=== PATIENT | female | born 1965 | race Caucasian/White ===

== ENCOUNTER 2021-09-07 19:24 | Emergency (ER) | payer BC ==
[~2021-09-07 19:24] MED LIST: ACHD5005 PO; IBP600T1 PO
[2021-09-07] MEDS ORDERED: CEPHALEXIN 250 MG (KEFLEX) CAP PO STA (20:22)
[2021-09-07] MEDS ORDERED: CEPH500T PO (20:26)
--- NOTE | 2021-09-07 20:26 | ED Lower Extremity ---
General Chief Complaint: Laceration Stated Complaint: STEPPED ON A MASSIMO NAIL, L FOOT PUNCTURE WOUND Source: patient Exam Limitations: no limitations History of Present Illness Date Seen by Provider: Sep 07, 2021 Time Seen by Provider: 20:23 Initial Comments Patient is a 56-year-old female who presents ED with a puncture wound to her l eft plantar foot. Few hours ago she was cleaning out breaking down a shed. She stepped on a massimo nail through her shoe. She felt immediate pain was able to pull her foot off. This resulted in a puncture wound to the left plantar foot with bleeding. She mainly came to the ER. Not up-to-date on her tetanus. Pain with walking. Bleeding controlled during exam. Not on blood thinners. Refused anything for pain at this time. Allergies and Home Medications Allergies Coded Allergies: No Known Drug Allergies (Unverified , 10/08/10) Patient Home Medication List Home Medication List Reviewed: Yes Cephalexin (Cephalexin) 500 Mg Tablet, 500 MG PO QID Prescribed by: ELOY BECERRA on 09/07/212025 Hydrocodone Bit/Acetaminophen (Lortab 5 Mg) 1 Tab Tab, 1-2 TAB PO Q4H PRN for PAIN Prescribed by: CIRILO CHAN on 03/21/141622 Ibuprofen (Motrin Tablet) 600 Mg Tab, 600 MG PO Q6H PRN for PAIN Prescribed by: CIRILO CHAN on 03/21/141622 Review of Systems Constitutional: No diaphoresis, No malaise, No weakness EENTM: No ear pain, No blurred vision, No double vision Respiratory: No cough, No dyspnea on exertion Cardiovascular: No chest pain Gastrointestinal: No abdominal pain, No diarrhea, No nausea, No vomiting Genitourinary: No decreased output, No discharge Musculoskeletal: No back pain; joint pain, muscle pain Skin: change in color All Other Systems Reviewed Negative Unless Noted: Yes Past Beuajyb-Yorxvf-Uejoms Hx Immunizations Up To Date Tetanus Booster (TDap): More than 5yrs Past Medical History Reproductive Disorders: Yes Sexually Transmitted Disease: No Family Medical History Arthritis 19 MOTHER Cardiovascular disease 19 FATHER Completed stroke 19 FATHER Dementia 19 FATHER Diabetes mellitus 19 MOTHER Hypertension 19 FATHER 19 MOTHER Kidney disease 19 FATHER G8 SISTER Myocardial infarction 19 FATHER No Family History of: AIDS Alcoholism Alzheimer's disease Asthma Colon cancer Drug abuse Headache disorder Parkinson's disease Prostate cancer Psychosocial problem Respiratory disorder Seizure disorder Thyroid disease Tuberculosis Physical Exam Vital Signs Capillary Refill : Height, Weight, BMI Height: 5'2.00" Weight: 139lbs. oz. [id number]; BMI Method: General Appearance: WD/WN, no apparent distress HEENT: PERRL/EOMI, normal ENT inspection, TMs normal, pharynx normal Neck: non-tender, full range of motion, supple Cardiovascular: regular rate, rhythm, no edema, no gallop, no JVD Respiratory: chest non-tender, lungs clear, normal breath sounds, no respiratory distress, no accessory muscle use Gastrointestinal: normal bowel sounds, non tender, soft, no organomegaly Back: normal inspection, no CVA tenderness, no vertebral tenderness Feet: right foot pain, right foot soft tissue tenderness, right foot swelling Neurologic/Psychiatric: high lift driver II-XII nml as tested, no motor/sensory deficits, alert, normal mood/affect, oriented x 3 Skin: other (Puncture wound to left plantar foot. No obvious foreign body. Tenderness to palpate. No active bleeding) Progress/Results/Core Measures Results/Orders My Orders Orders - ELIZABETH BARNETT Dipht,Pertuss(Acell),Tet Adult (Boostrix (09/07/21 20:30) Cephalexin Capsule (Keflex Capsule) (09/07/21 20:22) Ibuprofen Tablet (Motrin Tablet) (09/07/21 20:30) Medications Given in ED Current Medications Medications Dose Ordered Sig/Susan Route Start Time Stop Time Status Last Admin Dose Admin Diphtheria/ Tetanus/Acell Pertussis 0.5 ml ONCE ONCE IM 09/07/21 20:30 09/07/21 20:31 DC 09/07/21 21:09 0.5 ML Ibuprofen 800 mg ONCE ONCE PO 09/07/21 20:30 09/07/21 20:31 DC 09/07/21 21:13 800 MG Departure Communication (PCP) Patient with a puncture wound to left plantar foot. Extensive irrigation. No obvious foreign body on exam. Updated tetanus. Patient Was given dose of Keflex will discharge Keflex prophylactically. Since this was not a grossly contaminated or deep wound Keflex should be sufficient. discussed wound care at home. Continue monitoring at home. Appears to be superficial. Unlikely bone involvement. Outpatient follow-up. Return precaution were discussed with patient Impression Primary Impression: Puncture wound Disposition: HOME, SELF-CARE Condition: Stable Departure-Patient Inst. Decision time for Depature: 20:25 Referrals: RASHMI GREWAL MD (PCP/Family) Primary Care Physician Patient Instructions: Wound Care ED Scripts Cephalexin (Cephalexin) 500 Mg Tablet 500 MG PO QID for 7 Days, #28 TAB Prov: ELIZABETH BARNETT 09/07/21 ELIZABETH BARNETT Sep 07, 2021 20:26
[2021-09-07] MEDS ORDERED: IBUPROFEN 800 MG (MOTRIN) TAB PO ONE (20:30)
[2021-09-07] MEDS ORDERED: TETANUS,DIPTH,PERTUSS P/F (BOOSTRIX) 0.5 ML VIAL IM ONE (20:30)
[2021-09-07 21:17] VITALS: BP 130/82
== END 2021-09-07 21:17 | disposition home or self-care (01) ==
LOC: EDUNIT# 19:24 → ER 19:27
DX: S91.332A Puncture wound without foreign body, left foot, initial encounter (principal); Z23 Encounter for immunization; W45.0XXA Nail entering through skin, initial encounter
CPT/HCPCS: 90715; 99284